=== PATIENT | female | born 1965 | race Caucasian/White ===

== ENCOUNTER → 2017-06-23 | Outpatient (CLI) | payer BC ==
[~2017-06-23] MED LIST: AVONEX30 MCG/0.5 IM; DAILY MULTIPLE1 EACH PO; IBUPROFEN400 MG PO; LEXAPRO10 MG PO; PROVIGIL200 MG PO; SIMVASTATIN20 MG PO; VITAMIN B-6100 MG PO; VITAMIN D-32000 UNI2 PO
== END | disposition home or self-care (01) ==
LOC: CDC 10:30
DX: Z01.810 Encounter for preprocedural cardiovascular examination (principal); M25.531 Pain in right wrist; M65.4 Radial styloid tenosynovitis [de Quervain]; G56.01 Carpal tunnel syndrome, right upper limb
CPT/HCPCS: 93000